=== PATIENT | male | born 1990 ===

== ENCOUNTER 2016-06-08 10:02 | Emergency (ER) | payer MEDICAID ==
[2016-06-08 10:02] VITALS: BMI 30.7
[2016-06-08 10:10] VITALS: BP 149/109; PULSE 67; RESP 19; TEMP 98.4; O2SAT 99
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
== END 2016-06-08 13:58 | disposition home or self-care (01) ==
LOC: H.ER 10:02
DX: F43.10 Post-traumatic stress disorder, unspecified (principal); F31.9 Bipolar disorder, unspecified

== ENCOUNTER 2016-06-12 22:22 | Emergency (ER) | payer MEDICAID ==
[2016-06-12 22:22] VITALS: BMI 30.7
[2016-06-12 22:41] VITALS: BP 149/70; PULSE 78; RESP 16; TEMP 98.2; O2SAT 100
--- NOTE | 2016-06-12 23:10 | ED PDOC ---
HPI: Psych/Substance Abuse Time Seen by Provider: 06/12/16 23:04 Chief Complaint (Nursing): Psychiatric Evaluation Chief Complaint (Provider): Crisis eval History Per: Patient Additional Complaint(s): To ED for psych evaluation due to anxiety and depression. Patient states he ran out of his anxiety medication. Patient has appointment with Mental Health clinic on 06/21/16. No homicidal or suicidal ideations. No physical complaints. Past Medical History Reviewed: Historical Data, Nursing Documentation, Vital Signs Vital Signs: Last Vital Signs Temp 98.2 F 06/12/16 22:36 Pulse 78 06/12/16 22:36 Resp 16 06/12/16 22:36 BP 149/70 06/12/16 22:36 Pulse Ox 100 06/12/16 22:36 - Medical History PMH: Anxiety, Asthma (with weather changes only), Bipolar Disorder, Depression Denies: Diabetes, Hepatitis, HIV, HTN, Seizures, Sexually Transmitted Disease - Family History Family History: States: Unknown Family Hx, Diabetes, Hypertension - Immunization History Hx Tetanus Toxoid Vaccination: Yes - Home Medications Home Medications: Ambulatory Orders Medication Instructions Recorded Sertraline [Zoloft] 50 mg PO DAILY 04/30/16 Alprazolam 1 mg PO BID 06/08/16 ALPRAZolam [Xanax] 1 mg PO TID #9 tab 06/13/16 - Allergies Allergies/Adverse Reactions: Allergies Allergy/AdvReac Type Severity Reaction Status Date / Time No Known Allergies Allergy Verified 06/12/16 22:36 Review of Systems ROS Statement: Except As Marked, All Systems Reviewed And Found Negative Physical Exam - Reviewed Nursing Documentation Reviewed: Yes Vital Signs Reviewed: Yes - Physical Exam Appears: Positive for: Well, Non-toxic, No Acute Distress Head Exam: Positive for: ATRAUMATIC, NORMAL INSPECTION, NORMOCEPHALIC Skin: Positive for: Normal Color, Warm, DRY Eye Exam: Positive for: EOMI, Normal appearance, PERRL ENT: Positive for: Normal ENT Inspection Neck: Positive for: Normal, Painless ROM Cardiovascular/Chest: Positive for: Regular Rate, Rhythm Respiratory: Positive for: CNT, Normal Breath Sounds Gastrointestinal/Abdominal: Positive for: Normal Exam, Bowel Sounds, Soft Back: Positive for: Normal Inspection Extremity: Positive for: Normal ROM Neurologic/Psych: Positive for: Alert, Oriented - ECG O2 Sat by Pulse Oximetry: 100 Medical Decision Making Medical Decision Making: Pt underwent crisis eval, see note. Disposition - Clinical Impression Clinical Impression: Anxiety - Patient ED Disposition Is Patient to be Admitted: No - Disposition Disposition: Routine/Home Disposition Time: 23:25 Condition: STABLE Prescriptions: ALPRAZolam [Xanax] 1 mg PO TID #9 tab Instructions: Anxiety (ED) - POA Present On Arrival: None
== END 2016-06-13 01:38 | disposition home or self-care (01) ==
LOC: H.ER 22:22
DX: F41.9 Anxiety disorder, unspecified (principal)

== ENCOUNTER 2016-06-29 10:31 | Emergency (ER) | payer MEDICAID ==
[2016-06-29 10:32] VITALS: BMI 30.7
[2016-06-29 11:20] VITALS: BP 143/75; PULSE 67; RESP 20; TEMP 97.8; O2SAT 99
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
== END 2016-06-29 12:31 | disposition home or self-care (01) ==
LOC: H.ER 10:31
DX: F41.9 Anxiety disorder, unspecified (principal); F31.9 Bipolar disorder, unspecified